=== PATIENT | female | born 1950 | race Caucasian/White ===

== ENCOUNTER → 2018-08-15 | Outpatient (CLI) | payer MEDICARE, OTHER ==
[~2018-08-15] MED LIST: ALPR.5 PO; AMLO5 PO; ASPI81EC PO; ATOR10 PO; CITA20 PO; CLOP75 PO; DIAZ5 PO; MECL25 PO; METO25 PO; METO25ER PO; Norco 5-325 Ta1 EACH PO; OXYACE5T; ROSU10TA PO; Roxicodone5 MG PO
== END ==
LOC: LAB SHORT 19:38 → LAB 19:38
DX: N61.1 Abscess of the breast and nipple (principal)
CPT/HCPCS: 87070; 87075; 87205

== ENCOUNTER → 2019-03-17 | Outpatient (CLI) | payer MEDICARE, OTHER ==
[2019-03-19 14:13] LABS: Stool Occult Bld Immuno 1 Negative (NEGATIVE)
== END | disposition home or self-care (01) ==
LOC: LAB 09:25 → LAB SHORT 09:25
PROVIDERS: Family Medicine
DX: Z12.11 Encounter for screening for malignant neoplasm of colon (principal)
CPT/HCPCS: G0328

== ENCOUNTER 2024-06-16 14:40 | Inpatient (IN) | payer OTHER ==
[~2024-06-16] VITALS: Ht 149.9 cm; Wt 90.8 kg
[~2024-06-16 14:40] MED LIST changes: +ASPI81CH PO; -ASPI81EC PO
[2024-06-16] MEDS ORDERED: HYDROmorphone HCl/Pf 1MG SYR IV ONE ×2 (16:10→21:00)
[2024-06-16] MEDS ORDERED: NS 1,000 ML IV SCH ×2 (16:15→21:15)
[2024-06-16 16:43] LABS: BASOPHILS ABSOLUTE AUTO 0.06 K/mm3 (0.00-0.23); BASOPHILS PERCENT AUTO 1 % (0-2); EOSINOPHILS ABSOLUTE AUTO 0.13 K/mm3 (0.00-0.68); EOSINOPHILS PERCENT AUTO 1 % (0-6); Hematocrit 43.9 % (33.0-51.0); Hemoglobin 14.5 g/dL (11.5-16.0); IMMATURE GRAN ABSOLUTE AUTO 0.08 K/mm3 (0.00-0.10); IMMATURE GRAN PERCENT AUTO 1 % (0-1); LYMPHOCYTES ABSOLUTE AUTO 1.81 K/mm3 (0.84-5.20); LYMPHOCYTES PERCENT AUTO 14 % (21-46); MONOCYTES ABSOLUTE AUTO 0.95 K/mm3 (0.16-1.47); MONOCYTES PERCENT AUTO 7 % (4-13); Mean Corpuscular HGB 32.2 pg (26.0-34.0); Mean Corpuscular Volume 98 fL (80-100); Mean Platelet Volume 9.2 fL (9.1-12.4); NEUTROPHILS PERCENT AUTO 77 % (41-73); Platelet Count 198 K/mm3 (150-400); RDW Coefficient Variation 14.4 % (11.7-14.2); RDW Standard Deviation 51.8 fL (35.1-46.3); White Blood Cell Count 12.93 K/mm3 (4.00-11.30)
[2024-06-16 17:04] LABS: Albumin, Blood 3.3 g/dL (3.4-5.0); Albumin/Globulin Ratio 0.9 (0.8-1.8); Bilirubin, Total 0.5 mg/dL (0.1-1.0); Bun/Creatinine Ratio 15.6 (12.0-20.0); Calcium, Blood 9.2 mg/dL (8.5-10.1); Creatinine, Blood 0.71 mg/dL (0.40-1.00); Globulin, Blood 3.7 g/dL (2.2-4.0); Potassium, Blood 4.7 mmol/L (3.5-5.5)
[2024-06-16] MEDS ORDERED: Ketorolac Tromethamine 15mg Vial IV ONE (18:05)
[2024-06-16] MEDS ORDERED: Cyclobenzaprine HCl 10 MG Tab PO ONE (18:05)
[2024-06-16] MEDS ORDERED: Ondansetron HCl 2 MG / ML 2ML Vial IV PRN (21:15)
[2024-06-16] MEDS ORDERED: Metoclopramide HCl 5MG / ML 2ML Vial IV PRN (21:15)
[2024-06-16] MEDS ORDERED: FentaNYL Citrate 50 MCG/ML 2 ML Injection IV PRN (21:15)
[2024-06-16] MEDS ORDERED: FLU VACC TS2024-25(6MOS UP)/PF 45 MCG/0.5 ML SYRINGE IM ONE (21:15)
[2024-06-16] MEDS ORDERED: OxyCODONE 5 mg/Acetamin 325 mg TABLET PO PRN (21:20)
[2024-06-16 22:20] VITALS: BP 145/108
[2024-06-17] VITALS (22 sets, daily range): BP systolic 122–184; BP diastolic 73–121
--- NOTE | 2024-06-17 00:50 | NUR ---
TRANSFER NOTE: PT ARRIVED FROM ED ~2200, AOX4 SLID FROM STRETCHER, PT IN A LOT OF PAIN MEDICATED PER EMR. FAMILY PRESENT AND WILL BE BACK IN THE MORNING TO TALK TO THE DOCTOR. PT ORIENTED TO ROOM. BED IN LOWEST POSITION, CALL LIGHT IN REACH, CONTINUING CARE.
--- NOTE | 2024-06-17 04:43 | NUR ---
SHIFT SUMMARY: PT AOX4 SOME CONFUSION AT TIMES AND FORGETFUL, PT STATES THIS IS BASELINE. PT COOPERATIVE IN CARE AND CALLS APPROPRIATELY. IN A LOT OF PAIN, MEDICATED PER EMR. REFUSES TO ATTEMPT TO MOVE LEG OR TO REPOSITION. PURE WICK IN PLACE. PT NPO SINCE MIDNIGHT TOLERATING WELL. PT ANXIOUS ABOUT PROCEDURE AND WHAT IT IS GOING TO TAKE TO GET BETTER. PLEASANT MOOD AND AFFECT. NO ACUTE EVENTS OVERNIGHT. PT IN BED SLEEPING, BED IN LOWEST POSITION, CALL LIGHT IN REACH. CONTINUING CARE.
[2024-06-17 05:33] LABS: BASOPHILS ABSOLUTE AUTO 0.05 K/mm3 (0.00-0.23); BASOPHILS PERCENT AUTO 1 % (0-2); EOSINOPHILS ABSOLUTE AUTO 0.06 K/mm3 (0.00-0.68); EOSINOPHILS PERCENT AUTO 1 % (0-6); Hematocrit 40.7 % (33.0-51.0); Hemoglobin 13.4 g/dL (11.5-16.0); IMMATURE GRAN ABSOLUTE AUTO 0.03 K/mm3 (0.00-0.10); IMMATURE GRAN PERCENT AUTO 0 % (0-1); LYMPHOCYTES ABSOLUTE AUTO 2.27 K/mm3 (0.84-5.20); LYMPHOCYTES PERCENT AUTO 31 % (21-46); MONOCYTES ABSOLUTE AUTO 0.65 K/mm3 (0.16-1.47); MONOCYTES PERCENT AUTO 9 % (4-13); Mean Corpuscular HGB 31.8 pg (26.0-34.0); Mean Corpuscular HGB Conc 32.9 g/dL (31.5-36.5); Mean Corpuscular Volume 97 fL (80-100); Mean Platelet Volume 8.9 fL (9.1-12.4); NEUTROPHILS ABSOLUTE AUTO 4.18 K/mm3 (1.96-9.15); NEUTROPHILS PERCENT AUTO 58 % (41-73); Platelet Count 166 K/mm3 (150-400); RDW Coefficient Variation 14.4 % (11.7-14.2); RDW Standard Deviation 51.6 fL (35.1-46.3); Red Blood Cell Count 4.21 M/mm3 (3.80-5.20); White Blood Cell Count 7.24 K/mm3 (4.00-11.30)
[2024-06-17 06:01] LABS: Calcium, Blood 8.6 mg/dL (8.5-10.1); Creatinine, Blood 0.59 mg/dL (0.40-1.00); Potassium, Blood 3.7 mmol/L (3.5-5.5)
[2024-06-17] MEDS ORDERED: Aspirin 81 MG Chew PO SCH (09:00)
[2024-06-17] MEDS ORDERED: Docusate Sodium/Senna 1 Tab PO SCH (09:00)
[2024-06-17] MEDS ORDERED: Metoprolol Tartrate 25 MG Tab PO SCH (09:00)
[2024-06-17] MEDS ORDERED: Atorvastatin 10 MG Tab PO SCH (09:00)
[2024-06-17] MEDS ORDERED: Lactated Ringer's 1,000 ML IV SCH (11:10)
--- NOTE | 2024-06-17 11:18 | NUR ---
PT TO SURGERY FOR R HIP FRACTURE REPAIR AT APPROX 1055. SURGERY PLAN TO START AT 1400.
[2024-06-17] MEDS ORDERED: CeFAZolin Sodium 2,000 MG in NS 100 ML IV SCH (11:20)
[2024-06-17] MEDS ORDERED: CeFAZolin Sodium 2,000 MG VIAL ONE (11:23)
[2024-06-17] MEDS ORDERED: BUSPIRONE HCL30 M6 PO (11:58)
[2024-06-17] MEDS ORDERED: Ipratropium/Albuterol SulF 2.5-0.5MG/3 ML Amp ONE (11:59)
[2024-06-17] MEDS ORDERED: BREO ELLIPTA 11 EAC1 INH (12:00)
[2024-06-17] MEDS ORDERED: Ipratropium/Albuterol SulF 2.5-0.5MG/3 ML Amp INH ONE (12:05)
[2024-06-17] MEDS ORDERED: Bupivacaine 0.5% W/EPI 1:200000 SDV 30 ML Vial ONE (12:22)
[2024-06-17] MEDS ORDERED: FentaNYL Citrate 50 MCG/ML 2 ML Injection ONE ×2 (12:31→12:51)
[2024-06-17] MEDS ORDERED: propofoL 20 ML IV ONE (12:31)
[2024-06-17] MEDS ORDERED: SuccINYLCHOLINE Chloride 100 MG/5 ML 5MLSYR ONE (12:37)
[2024-06-17] MEDS ORDERED: Rocuronium Bromide 10 MG/ML 5ML Injection IV ONE (12:37)
[2024-06-17] MEDS ORDERED: Lidocaine HCl 2% 20 ML MDV ONE (12:37)
[2024-06-17] MEDS ORDERED: Ondansetron HCl 2 MG / ML 2ML Vial ONE (12:38)
[2024-06-17] MEDS ORDERED: Dexamethasone Sod Phos 10 MG/ML 1ML VIAL ONE (12:38)
[2024-06-17] MEDS ORDERED: Ketorolac Tromethamine 30mg Vial ONE (13:25)
[2024-06-17] MEDS ORDERED: Sugammadex Sodium 200 MG/2ML SDV (100 MG/ML) ONE (13:25)
[2024-06-17] MEDS ORDERED: Labetalol HCL 5 MG/ML 4ML Injection (Single Dose) ONE (14:03)
--- NOTE | 2024-06-17 14:15 | NUR ---
THIS RN PROVIDED VERBAL REPORT TO TOLU MARTINEZ ON SURGICAL FLOOR WHERE PT WILL BE TRASNFERRED POST OP AT APPROX 1410. NO PERSONAL BELONGINGS LEFT IN ROOM, SPOUSE TOOK THEM WITH HIM WHEN PT TAKEN TO DAY SURGERY.
--- NOTE | 2024-06-17 15:01 | NUR ---
Arrival to unit 1450 Pt arrived to room 212 via bed from PACU. Iv infusing tko left arm. Gauze dressing to R hip. CMS intact distally. Alert and oriented x4. Answers questions appropriately. SCDs on a cycling. Vss. Will continue to monitor. Bed alarm on
--- NOTE | 2024-06-17 16:57 | NUR ---
End of shift summary. Vss. Pt resting quietly. IV infusing left arm. Dressing CDI. Cms remains intact. Scds remain on and cycling.
[2024-06-17] MEDS ORDERED: Cyclobenzaprine HCl 10 MG Tab PO ONE (20:40)
[2024-06-18 04:21] VITALS: BP 125/87
[2024-06-18 05:05] LABS: Hematocrit 38.8 % (33.0-51.0); Hemoglobin 12.8 g/dL (11.5-16.0); Mean Corpuscular HGB 31.8 pg (26.0-34.0); Mean Corpuscular Volume 97 fL (80-100); Mean Platelet Volume 9.8 fL (9.1-12.4); Platelet Count 183 K/mm3 (150-400); RDW Coefficient Variation 14.5 % (11.7-14.2); RDW Standard Deviation 51.8 fL (35.1-46.3); Red Blood Cell Count 4.02 M/mm3 (3.80-5.20); White Blood Cell Count 9.74 K/mm3 (4.00-11.30)
--- NOTE | 2024-06-18 05:21 | NUR ---
SHIFT SUMMARY NOC PT A/O X 4. ANXIOUS TO DISCHARGE, BUT COOPERATIVE WITH CARE. POST OP VSS. PT IS POST OP DAY 1 FOR R HIP FX PINNING. PAIN/CRAMPING BEING MANAGED PER EMAR. PT HAS GAUZE WITH OPSITE COVERING INCISION SITE WITH SCANT STRIKING NOTED. PT HAS PUREWICK IN PLACE FOR INCONTINENCE, AND ON 4L/NC SPO2 >92%. PT SPOUSE STAYED NIGHT WITH PT. PT EXPECTED TO DISCHARGE HOME TODAY. PT CURRENTLY RESTING WITH BED IN LOWEST POSITION, AND CALL LIGHT WITHIN REACH.
[2024-06-18 07:15] VITALS: BP 155/96
--- NOTE | 2024-06-18 07:38 | NUR ---
REQUESTED WEIGHT BEARING STATUS AND PT/OT. AWAITING RESPONSE
[2024-06-18] MEDS ORDERED: Mometasone/Formoterol MDI 100/5 mcg 13 GM INH SCH (13:45)
[2024-06-18 15:26] VITALS: BP 151/91
--- NOTE | 2024-06-18 16:36 | NUR ---
SHIFT SUMMARY AOX3-4 FORGETFUL AT TIMES, APPEARS ANXIOUS AT TIMES. PATIENT IS ON 3L NC SATS ABOVE 93%. INSTRUCTED ON INSCENTIVE SPIROMETER. WORKED WITH PT AND OT TODAY UP TO CHAIR AND BSC 1 ASSIST FWW,GB. PATIENT IS ADAMANT THAT SHE WANTS TO BE DISCHARGED HOME, THIS RN TALKED WITH PATIENT AND S/O IN ROOM ABOUT POSSIBILTY OF WORKING WITH PT AT HOME ADVISED THAT CARE MANAGEMENT TEAM IS WORKING WITH DR AND PT FOR RECOMENDATIONS.PATIENT IS MEDICATED FOR PAIN AND TOLERATED WELL. DECREASED APPTITE BUT DENIES N/V. GAUZE WITH TEGADERM TO R HIP IS C/D/I. DENIES BM, BUT IS PASSING GAS AND VOIDING. VSS. CALL LIGHT IN REACH
[2024-06-18] MEDS ORDERED: QUET300 PO (18:33)
[2024-06-18 19:38] VITALS: BP 184/88
[2024-06-18] MEDS ORDERED: BusPIRone HCl 10 MG Tab PO SCH (21:00)
[2024-06-18] MEDS ORDERED: QUEtiapine Fumarate 300 MG Tab PO SCH (21:00)
[2024-06-19 04:28] VITALS: BP 145/87
--- NOTE | 2024-06-19 04:34 | NUR ---
SHIFT SUMMARY POD 2 R HIP PINNING. NO ACUTE CHANGES OVERNIGHT. VSS, O2 SAT >90% ON 2L O2 VIA NC. TOLERATING ORALS. VOIDING, ENC BSC TOLERATED. 2 PERSON MOD ASSIST STAND/PIVOT c FWW & GB. PT MEDICATED FOR PAIN PER EMAR.PT SLEPT WELL T/O NIGHT. @ BEDSIDE. ENC PT TO PERFORM ADLs. EDUCATED PT & FAMILY c ALL CARE INTERACTIONS. ANTICIPATED DC TO SNF, IF PT AGREEABLE. CALL LIGHT IN REACH, BED ALARM IN USE, WILL REPORT TO DAY RN.
[2024-06-19 07:57] VITALS: BP 143/85
[2024-06-19] MEDS ORDERED: DOCUZEN 8.6-501 EACH PO (11:55)
[2024-06-19] MEDS ORDERED: Percocet 5-3251 EACH PO (11:56)
--- NOTE | 2024-06-19 14:00 | NUR ---
DISCHARGE REPORT TO PEGGY MEADOWS TAKEN OUT INTACT. ALL BELONGINGS WITH PATIENT AND PACKET WITH DADO OPERATOR.
== END 2024-06-19 12:52 | DRG 482 ==
LOC: ER 14:40 → ERHOLD 20:51 → MEDS 20:51 → SURS 20:51 → MEDS 22:05 → SURS 06-17 14:54
PROVIDERS: Internal Medicine; Nurse Practitioner Acute Care; Student in an Organized Health Care Education/Training Program; ADMIT Student in an Organized Health Care Education/Training Program
PROC: 0QH734Z Insertion of Internal Fixation Device into Left Upper Femur, Percutaneous Approach (ICD-10-PCS; principal; 2024-06-18)
DX: S72.001A Fracture of unspecified part of neck of right femur, initial encounter for closed fracture (principal); F17.210 Nicotine dependence, cigarettes, uncomplicated; F12.90 Cannabis use, unspecified, uncomplicated; I72.3 Aneurysm of iliac artery; I10 Essential (primary) hypertension; I25.10 Atherosclerotic heart disease of native coronary artery without angina pectoris; E78.5 Hyperlipidemia, unspecified; F32.A Depression, unspecified; F41.9 Anxiety disorder, unspecified; Z88.0 Allergy status to penicillin; Z79.82 Long term (current) use of aspirin; Z79.899 Other long term (current) drug therapy; Z79.891 Long term (current) use of opiate analgesic; I25.2 Old myocardial infarction; Z90.710 Acquired absence of both cervix and uterus; Z90.722 Acquired absence of ovaries, bilateral; Z87.59 Personal history of other complications of pregnancy, childbirth and the puerperium; Z98.890 Other specified postprocedural states; Z95.5 Presence of coronary angioplasty implant and graft; W01.0XXA Fall on same level from slipping, tripping and stumbling without subsequent striking against object, initial encounter
CPT/HCPCS: 36415; 72192; 73502; 73552; 73590; 73630; 80048; 80053; 85025; 85027; 93005; 93010; 94640; 94664; 94760; 96374; 96375; 97110; 97162; 97165; 97530; 97535; 99285-25; A9270; C1713; C1769; J0330; J0690; J1100; J1171; J1885; J2405; J2704; J3010; J7030; J7120